=== PATIENT | male | born 1980 | race Caucasian/White ===

== ENCOUNTER 2017-08-18 14:17 | Inpatient (IN) | payer MEDICAID ==
[~2017-08-18] VITALS: Ht 180.3 cm; Wt 64.3 kg
[2017-08-18] MEDS ORDERED: SODIUM CHLORIDE 0.9% 1,000 ML IV ONE ×2 (14:26→17:57)
[2017-08-18] MEDS ORDERED: SODIUM CHLORIDE FLUSH 10ML SYR IVF ONE (14:30)
[2017-08-18] MEDS ORDERED: PLEASE ENTER HEIGHT AND WEIGHT MC SCH (14:30)
[2017-08-18] MEDS ORDERED: LORazepam 2 MG/ML, 1ML IVPush ONE (14:30)
[2017-08-18] MEDS ORDERED: SODIUM CHLORIDE 0.9% 1,000ML IVBOLUS ONE (14:30)
[2017-08-18 14:51] LABS: BASOPHILS # (AUTO) 0.02 x10^3/uL (0-0.1); BASOPHILS % (AUTO) 0 % (0-1); EOSINOPHILS % (AUTO) 0 % (1-7); LYMPHOCYTES % (AUTO) 11 % (22-44); MD NO; MEAN CORPUSCULAR HEMOGLOBIN 34.5 pg (27.5-34.5); MEAN CORPUSCULAR HGB CONC 33.8 g/dL (33.2-36.2); MEAN CORPUSCULAR VOLUME 101.8 fL (81-97); MEAN PLATELET VOLUME 7.7 fL (7.4-10.4); MONOCYTES # (AUTO) 0.56 x10^3/uL (0.2-0.8); MONOCYTES % (AUTO) 9 % (2-9); NEUTROPHILS # (AUTO) 5.23 x10^3/uL (1.8-6.8); NEUTROPHILS % (AUTO) 80 % (42-75); PLATELET COUNT 182 x10^3/uL (130-400); RED BLOOD COUNT 4.61 x10^6/uL (4.38-5.82); RED CELL DISTRIBUTION WIDTH 15.1 % (9.4-14.8)
[2017-08-18 15:01] LABS: ALANINE AMINOTRANSFERASE 84 U/L (12-78); ALBUMIN 2.8 g/dL (3.4-5.0); ANION GAP 18 mmol/L (5-15); CALCIUM 8.3 mg/dL (8.5-10.1); CHLORIDE 103 mmol/L (98-107)
[2017-08-18 15:03] LABS: ALKALINE PHOSPHATASE 189 U/L (45-117); BILIRUBIN,TOTAL 1.7 mg/dL (0.2-1.0); TOTAL PROTEIN 6.3 g/dL (6.4-8.2)
[2017-08-18] MEDS ORDERED: LORazepam 2 MG/ML, 1ML ONE (15:28)
[2017-08-18] MEDS ORDERED: LEVE500T8 PO (17:48)
[2017-08-18] MEDS ORDERED: LAMO5TB. PO (17:48)
[2017-08-18] MEDS ORDERED: OMEP-110 PO (17:48)
[2017-08-18] MEDS ORDERED: SODIUM CHLORIDE FLUSH 10ML SYR IVF PRN (18:00)
[2017-08-18] MEDS ORDERED: POLYETHYLENE GLYCOL 17 GM PACKET PO PRN (18:30)
[2017-08-18] MEDS ORDERED: ACETAMINOPHEN 325 MG TABLET PO PRN (18:30)
[2017-08-18] MEDS ORDERED: BISACODYL 10 MG SUPP PR PRN (18:30)
[2017-08-18] MEDS ORDERED: ONDANSETRON 2MG/ML, 2ML IVPush PRN (18:30)
[2017-08-18 18:46] LABS: SALICYLATE LEVEL 3.7 mg/dL (2.8-20.0)
[2017-08-18 18:50] LABS: ACETAMINOPHEN < 2 mcg/mL (10-30)
[2017-08-18 20:34] VITALS: BP 107/69
[2017-08-18] MEDS: LEVETIRACETAM 500 MG TABLET PO SCH (21:35)
[2017-08-18] MEDS: SODIUM CHLORIDE 0.9% 1,000 ML IV SCH (21:35)
[2017-08-18] MEDS: NICOTINE 14MG/24 HR PATCH.TD24 TD SCH (21:35)
[2017-08-18 21:40] LABS: AMPHETAMINE SCREEN, URINE Negative (Negative); BARBITURATE SCREEN, URINE Negative (Negative); BENZODIAZEPINE SCREEN, URINE Negative (Negative); CANNABINOID SCREEN, URINE Positive (Negative); COCAINE SCREEN, URINE Negative (Negative); METHADONE SCREEN, URINE Negative (Negative); OPIATE SCREEN, URINE Negative (Negative)
[2017-08-19 01:45] VITALS: BP 100/63
[2017-08-19] MEDS: SODIUM CHLORIDE 0.9% 1,000 ML IV SCH ×2 (03:58→15:25)
[2017-08-19 05:25] LABS: BASOPHILS # (AUTO) 0.02 x10^3/uL (0-0.1); BASOPHILS % (AUTO) 1 % (0-1); EOSINOPHILS % (AUTO) 2 % (1-7); LYMPHOCYTES # (AUTO) 1.87 x10^3/uL (1-3.4); LYMPHOCYTES % (AUTO) 37 % (22-44); MD NO; MEAN CORPUSCULAR HEMOGLOBIN 35.2 pg (27.5-34.5); MEAN CORPUSCULAR HGB CONC 34.3 g/dL (33.2-36.2); MEAN CORPUSCULAR VOLUME 102.4 fL (81-97); MEAN PLATELET VOLUME 7.9 fL (7.4-10.4); MONOCYTES # (AUTO) 0.67 x10^3/uL (0.2-0.8); MONOCYTES % (AUTO) 13 % (2-9); NEUTROPHILS # (AUTO) 2.38 x10^3/uL (1.8-6.8); NEUTROPHILS % (AUTO) 47 % (42-75); PLATELET COUNT 168 x10^3/uL (130-400); RED BLOOD COUNT 3.69 x10^6/uL (4.38-5.82); RED CELL DISTRIBUTION WIDTH 15.8 % (9.4-14.8)
[2017-08-19 05:32] LABS: ANION GAP 9 mmol/L (5-15); CALCIUM 7.1 mg/dL (8.5-10.1); CHLORIDE 107 mmol/L (98-107)
[2017-08-19 05:35] LABS: ALANINE AMINOTRANSFERASE 62 U/L (12-78); ALKALINE PHOSPHATASE 132 U/L (45-117); BILIRUBIN,TOTAL 1.3 mg/dL (0.2-1.0); CREATININE 0.39 mg/dL (0.7-1.3); TOTAL PROTEIN 4.6 g/dL (6.4-8.2)
[2017-08-19 07:04] VITALS: BP 107/68
[2017-08-19] MEDS: LEVETIRACETAM 500 MG TABLET PO SCH ×2 (08:58→20:36)
[2017-08-19] MEDS: SENNA/DOCUSATE TABLET PO SCH (08:59)
[2017-08-19] MEDS ORDERED: LAMOTRIGINE 5 MG PO SCH (09:00)
[2017-08-19] MEDS ORDERED: LAMOTRIGINE 25 MG TABLET PO SCH (09:00)
[2017-08-19 14:00] VITALS: BP 106/68
[2017-08-19] MEDS: NICOTINE 14MG/24 HR PATCH.TD24 TD SCH (17:07)
[2017-08-19 19:24] VITALS: BP 110/68
[2017-08-19] MEDS: ZONISAMIDE 50 MG CAPSULE PO SCH (20:36)
[2017-08-20 00:42] VITALS: BP 109/68
[2017-08-20] MEDS: SODIUM CHLORIDE 0.9% 1,000 ML IV SCH ×2 (01:15→10:21)
[2017-08-20 07:47] VITALS: BP 125/81
[2017-08-20] MEDS: SENNA/DOCUSATE TABLET PO SCH (08:48)
[2017-08-20] MEDS: LEVETIRACETAM 500 MG TABLET PO SCH (08:49)
[2017-08-20] MEDS: ZONISAMIDE 50 MG CAPSULE PO SCH (08:56)
[2017-08-20] MEDS ORDERED: ZONI50CA2 PO (10:16)
[2017-08-20] MEDS ORDERED: PNEUMOCOCCAL 23 VACCINE IM-VACC ONE (11:00)
[2017-08-20] MEDS ORDERED: FLU VACC QS2017-18 (36MOS+) UP/PF 0.5 ML IM-VACC ONE (11:00)
== END 2017-08-20 13:30 | disposition home or self-care (01) | DRG 101 ==
LOC: ED 15:42 → EDIP 17:57 → 4EST 18:37
PROVIDERS: ADMIT Family Medicine; ATTEND Family Medicine
DX: G40.909 Epilepsy, unspecified, not intractable, without status epilepticus (principal); E87.2 Acidosis; E44.0 Moderate protein-calorie malnutrition; E87.1 Hypo-osmolality and hyponatremia; Z68.1 Body mass index [BMI] 19.9 or less, adult; D75.89 Other specified diseases of blood and blood-forming organs; E86.0 Dehydration; F12.90 Cannabis use, unspecified, uncomplicated; F17.210 Nicotine dependence, cigarettes, uncomplicated; Z79.899 Other long term (current) drug therapy; Z82.5 Family history of asthma and other chronic lower respiratory diseases; Z23 Encounter for immunization
CPT/HCPCS: 36415; 70450; 70551; 71045; 80053; 80074; 80175; 80177; 80307; 80329; 82607; 82746; 83605; 85025; 90686; 90732; 93005; 96361; 96374; 80203; G0480; J2060; J7030